=== PATIENT | male | born 1975 | race Caucasian/White ===

== ENCOUNTER 2024-11-10 09:30 | Outpatient (OUT) | payer OTHER, SELFPAY ==
--- OUTSIDE RECORDS SUMMARY | 2021-02-15 09:45 | XMS_ITS | Continuity of Care Document ---
Author Organization [facility] Address [address] [place] [address] Phone Care Team Providers Care Fabrication Welder Name Role Phone Asad Alfaro Unavailable Unavailable Procedures Procedure Date IMMUNIZATION ADMIN FLU VAC NO PRSV 4 AMOR 3 YRS+ Moderna COVID Vaccine Admin Dose 2 Moderna COVID-19 Vaccine Moderna COVID Vaccine Admin Dose 1 Moderna COVID-19 Vaccine Advance Directives Directive Yes / No Effective Date File Name No Information Encounters Encounter Description Practice Location Reason(s) For Visit Diagnoses Date Provider Providers Copied on Encounter [facility], [address] [place] [address], [id number], tel:[phone] [facility] No Information Jimy Owen. [address], [place], [id number], [place]. tel:[phone] [facility], [address], [place], [id number], [place] tel:[phone] [facility] No Information Jimy Owen. [address], [place], [id number], [place]. tel:[phone] [facility], [address] [place] [address], [id number], tel:[phone] [facility] No Information Jimy Owen. [address], [place], [id number], [place]. tel:[phone] Family History Family Member Type Diagnosis Age At Onset No Information Immunizations Vaccine Date Status Comments Flulaval/ Fluarix administered Source: Ne w Immunization Record Bradley COVID administered Source: New Im munization Record Bradley COVID administered Source: New Im munization Record Payers Payer name Insurance type Covered constitution party ID Authoriza tion(s) [facility] [place] [id number] [facility] [place] [id number] [facility] [place] [id number] [facility] [place] CI [id number] Social History Type Description Quantity Date Captured Comments Alcohol Use Details Unknown Caffeine Use Details Unknown Tobacco Use Status No Information Smoking Status No Information Sex Male Sexual Orientation Straight or heterosexual Gender Identity Male Chief Complaint And Reason For Visit No Information Reason For Referral Reason For Referral No Information History Of Present Illness Encounter Date Complaint History Of Prese nt Illness No Information Functional Status Date Functional Assessmen t No Information Instructions Date Instruction Additional Infor mation No Information Assessments Type Assessment Date No Information Patient Care Teams Name Effective Dates (start - stop) Status Members No Information
--- NOTE | 2024-11-10 | XR_ITS ---
[address] [address] Patient Name: ABHIJIT GOLDEN MRN: [id number] date: 1975 Sex: M Assigned Patient Location: [facility] Current Patient Location: [facility] Accession/Order Number: [id number] Exam Date: 11/10/2024 11:53 Report Date: 11/10/2024 11:55 At the request of: JACQUELINE CROUCH MD Procedure: XR knee LT 4V 4 views left knee plain film standing position COMPARISON: None HISTORY: Left knee pain ACUTE FINDINGS: No acute findings DEGENERATIVE CHANGE: Mild degenerative changes. Marginal spurring. Mild lateral joint space narrowing SOFT TISSUE FINDINGS: Unremarkable JOINT EFFUSION: Small POSTOP CHANGES: None BONE MINERALIZATION: Adequate XR/XR knee LT 4V IMPRESSION: Mild degenerative changes Impression dictated by: Dax Laura M.D. 11/10/2024 11:55 AM Dictation Location: [place] [address] Electronically authenticated by: [id number] Y Date: 11/10/2024 11:55
--- NOTE | 2024-11-10 | XR_ITS ---
[address] [address] Patient Name: ABHIJIT GOLDEN MRN: [id number] date: 1975 Sex: M Assigned Patient Location: [facility] Current Patient Location: [facility] Accession/Order Number: [id number] Exam Date: 11/10/2024 11:55 Report Date: 11/10/2024 11:57 At the request of: JACQUELINE CROUCH MD Procedure: XR pelvis 1-2V Single view of the pelvis plain film HISTORY: Chronic left knee pain. No injury COMPARISON: None ACUTE FINDINGS: None BONY ALIGNMENT: Adequate SOFT TISSUES: Benign calcifications inferior to the left inferior pubic ramus DEGENERATIVE CHANGE:Adequate left hip. Left greater trochanter mild spurring. Moderate right hip degeneration no articular collapse. No AVN INTRAPELVIC STRUCTURES: Unremarkable POSTSURGICAL CHANGES:None XR/XR pelvis 1-2V IMPRESSION:Mild left greater trochanter spurring. Adequate left hip. Impression dictated by: Dax Laura M.D. 11/10/2024 11:57 AM Dictation Location[facility] Electronically authenticated by: [id number] Y Date: 11/10/2024 11:57
--- OUTSIDE RECORDS SUMMARY | 2024-11-10 09:33 | XMS_ITS | Encounter Summary ---
Author Organization [facility] Address [address] [place] [address] Care Team Providers Care High School Physical Education Teacher Name Role Phone Gabino Mcrae DO Primary Care Provider +1- [phone] Encounter Details Date Type Department Care Team (Late st Contact Info) Description 01/06/2024 [facility] [address] [place] [address] Gabino Mcrae, DO [address] [place] [address] Social History Tobacco Use Types Packs/Day Years Used Date Smoking Tobacco: Never Smokeless Tobacco: Never Alcohol Use Standard Drinks/Week Comments Yes 6 (1 standard drink = 0.6 oz pur e alcohol) B1300 Health Literacy Answer Date Recor ded How often do you need to hav e someone help you when you read instructions, pamphlets, or other written material from your doctor or pharmacy? Patient declines to respond 11/12/2023 Social Connection and Isolat ion Panel [NHANES] Answer Date Recorded In a typical week, how many times do you talk on the phone with family, friends, or neighbors? More than three times a week 11/12/2023 How often do you get togethe r with friends or relatives? Twice a week 11/12/2023 How often do you attend chur or zoroastrianism services? 1 to 4 times per year 11/12/2023 Do you belong to any clubs o r organizations such as scientology groups, unions, fraternal or athletic groups, or school groups? Yes 11/12/2023 How often do you attend meet ings of the clubs or organizations you belong to? Patient declined 11/12/2023 Are you , , di vorced, , never , or living with a partner? 11/12/2023 AUDIT-C Answer Date Recorded Q1: How often do you have a drink containing alc ohol? Patient declined 11/12/2023 Q2: How many drinks containi ng alcohol do you have on a typical day when you are drinking? Patient declined 11/12/2023 Q3: How often do you have si x or more drinks on one occasion? Patient declined 11/12/2023 Overall Financial Resource Strain (CARDIA) Answe r Date Recorded How hard is it for you to pa y for the very basics like food, housing, medical care, and heating? Not hard at all 11/12/2023 PHQ-2 Answer Date Recorded Patient Health Questionnaire-2 Score 0 11/12/2023 [facility] of Occupat ional [facility] - Occupational Stress Questionnaire Answer Date Recorded Do you feel stress - tense, restless, nervous, or anxious, or unable to sleep at night because your mind is troubled all the time - these days? Not at all 11/12/2023 Exercise Vital Sign Answer Date Recorde d On average, how many days pe r week do you engage in moderate to strenuous exercise (like a brisk walk)? 3 days 11/12/2023 On average, how many minutes do you engage in exercise at this level? 30 min 11/12/2023 Hunger Vital Sign Answer Date Recorded Within the past 12 months, y ou worried that your food would run out before you got the money to buy more. Never true 11/12/19 Within the past 12 months, t he food you bought just didn't last and you didn't have money to get more. Never true 11/12/2023 PRAPARE - Transportation Answer Date Re corded In the past 12 months, has l ack of transportation kept you from medical appointments or from getting medications? No 10/24 In the past 12 months, has l ack of transportation kept you from meetings, work, or from getting things needed for daily living? No 11/12/2023 Housing Stability Vital Sign Answer Eliezer e Recorded In the last 12 months, was t here a time when you were not able to pay the mortgage or rent on time? Patient declined 11/12/19 24 Number of Times Moved in the Last Year Not on fi le 11/12/2023 At any time in the past 12 m [facility], were you homeless or living in a care home (including now)? Patient declined 11/12/2023 Sex and Gender Information Value Date Recorded Sex Assigned at Male 08/20/2023 8:43 AM EDT Legal Sex Male 7:03 PM EDT Gender Identity Male 08/20/2023 8:43 AM EDT Sexual Orientation Straight 08/20/2023 8: 43 AM EDT documented as of this encounter Plan of Treatment Not on file documented as of this encounter Visit Diagnoses Not on filedocumented in this encounter Care Teams High School Physical Education Teacher Relationship Specialty Start Date End Date Gabino Mcrae DO [address] [facility] [address] [place] [address] PCP - General Family Medicine 07/31/22 documented as of this encounter
--- OUTSIDE RECORDS SUMMARY | 2024-11-10 09:33 | XMS_ITS | Encounter Summary ---
Author Organization [facility] Address [address] [place] [address] Care Team Providers Care Cigar Wrapper Tender Automatic Name Role Phone Gabino Mcrae DO Primary Care Provider +1- [phone] Encounter Details Date Type Department Care Team (Late st Contact Info) Description 09/21/2024 [facility] [address] [place] [address] Gabino Mcrae, DO [address] [place] [address] Social History Tobacco Use Types Packs/Day Years [...] How often do you attend chur or sikhism services? 1 to 4 times per year 11/12/2023 Do you belong to any clubs o r organizations such as moravian groups, unions, fraternal or athletic groups, or [...] Date Recorded Patient Health Questionnaire-2 Score 0 04/28/2024 [facility] of Occupat ional [facility] - Occupational Stress Questionnaire Answer [...] any time in the past 12 m [facility], were you homeless or living in a nursing home (including now)? Patient declined 11/12/2023 Sex [...] on filedocumented in this encounter Care Teams Cigar Wrapper Tender Automatic Relationship Specialty Start Date End Date Gabino Mcrae DO [address] [facility] [address] [place] [address] PCP - General Family Medicine 07/31/22 documented as of this encounter
--- OUTSIDE RECORDS SUMMARY | 2024-11-10 09:33 | XMS_ITS | Encounter Summary ---
Author Organization [facility] Address [address] [place] [address] Care Team Providers Care Mechanical Engineer Name Role Phone Gabino Mcrae DO Primary Care Provider +1- [phone] Encounter Details Date Type Department Care Team (Late st Contact Info) Description 07/21/2024 [facility] [address] [place] [address] Gabino Mcrae, DO [address] [place] [address] Social History Tobacco Use Types [...] How often do you attend chur or latter-day services? 1 to 4 times per year 11/12/2023 Do you belong to any clubs o r organizations such as temple groups, unions, fraternal or athletic groups, or [...] Recorded Patient Health Questionnaire-2 Score 0 04/28/2024 [facility] of Occupat ional [facility] - Occupational Stress Questionnaire Answer [...] any time in the past 12 m [facility], were you homeless or living in a snf (including now)? Patient declined 11/12/2023 Sex and [...] on filedocumented in this encounter Care Teams Mechanical Engineer Relationship Specialty Start Date End Date Gabino Mcrae DO [address] [facility] [address] [place] [address] PCP - General Family Medicine 07/31/22 documented as of this encounter
--- OUTSIDE RECORDS SUMMARY | 2024-11-10 09:33 | XMS_ITS | Clinical Summary ---
Author Organization [facility] Address [address] [place] [address] Care Team Providers Care Glazing Machine Operator Name Role Phone Gabino Mcrae Primary Care Provid er Allergies No known active allergies Medications meloxicam (MOBIC) 15 mg tablet Take 15 mg by mouth once daily. Active celecoxib (CELEBREX) 200 mg capsule Take one capsule by mouth twice daily after surgery for 30 days. 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 Last address used for calculation Dipesh Vargas 04/08/2022 Sex and Gender Information Value Date Recorded Sex Assigned at Not on file Legal Sex Male 7:29 AM EST Gender Identity Not on file Sexual Orientation Not on file Last Filed Vital Signs Vital Sign Reading Time Taken Comments Blood Pressure 136/73 08/15/2004 9:45 AM EDT Pulse 67 08/15/2004 9:45 AM EDT Temperature 36.3 C (97.3 F) 08/15/2004 9:45 AM EDT Respiratory Rate 20 07/19/2004 1:54 PM EDT Oxygen Saturation - - Inhaled Oxygen Concentration - - Weight 129.7 kg (286 lb) 05/29/2021 9:30 AM EST Height 185.4 cm (6' 1 ) 05/29/2021 9:30 AM EST Body Mass Index 37.73 05/29/2021 9:30 AM EST Plan of Treatment Health Maintenance Due Date Last Done Comments Anxiety Screening 09/24/1993 Depression Screening 09/24/1993 HIV Screening 09/24/1993 Hepatitis C Screening 09/24/1993 Hepatitis B Vaccine (1 of 3 - 19+ 3-dose series) 09/24/1994 Lipid Screening 09/24/2010 CT Colonography 09/24/2020 Cologuard (FIT-DNA) 09/24/2020 Colonoscopy 09/24/2020 Colorectal Cancer Screening 09/24/2020 Diabetes Screening 09/24/2020 08/15/2004, 07/19/2004 Fecal Occult Blood 09/24/2020 Sigmoidoscopy 09/24/2020 Influenza Vaccine (#1) 2024 , 11/16/2019, 02/01/2019, Additional history exists DTaP,Tdap,Td Vaccine (2 - Td or Tdap) 05/01/2029 05/01/2019 Procedures Procedure Name Priority Date/Time Associated Diagnosis Comments COMPREHENSIVE METABOLIC PANEL Routine 08/15/2004 11:29 AM EDT Bone Marrow Donor from Last 3 Months or Most Recently Relevant to Health Maintenance Results * COMP METABOLIC PANEL (08/15/2004 11:29 AM EDT) Protein, Total 7.0 6.0 - 8.4 g/dL [facility] Albumin 4.4 3.5 - 5.0 g/dL [facility] Calcium 10.0 8.5 - 10.5 mg/dL [facility] Bilirubin, Total 0.7 0.0 - 1.5 mg/dL [facility] Alkaline Phosphatase 71 40 - 150 U/L [facility] AST 24 7 - 40 U/L [facility] Glucose 95 65 - 100 mg/dL [facility] BUN 13 10 - 25 mg/dL [facility] Creatinine 1.0 0.7 - 1.4 mg/dL [facility] Sodium 141 135 - 146 mmol/L [facility] Potassium 3.9 3.5 - 5.0 mmol/L [facility] Chloride 103 98 - 110 mmol/L [facility] CO2 25 23 - 32 mmol/L [facility] Anion Gap 13 0 - 15 mmol/L [facility] ALT 30 5 - 50 U/L [facility] eGFR 95 [facility] MELD 5 [facility] Blood specimen (specimen) BLOOD SPECIMEN / Unknown 08/15/2004 11:29 AM EDT us Dami Little MD LABORATORY Final Result [facility] [address] [place] [address] from Last 3 Months or Most Recently Relevant to Health Maintenance Insurance O S Care Teams Glazing Machine Operator Relationship Specialty Start Date End Date Gabino Mcrae DO [address] [place] [address] PCP - General Family Medicine 11/27/17
--- OUTSIDE RECORDS SUMMARY | 2024-11-10 09:33 | XMS_ITS | Clinical Summary ---
Author Organization [facility] Address [address] [place] [address] Care Team Providers Care Rasper Machine Operator Name Role Phone Gabino Mcrae DO Primary Care Provider +1- [phone] Allergies No known active allergies Medications celecoxib (CeleBREX) 100 MG capsule bid 10/11/2023 Active Active Problems Problem Noted Date Diagnosed Date Right hip pain 11/12/2023 Primary osteoarthritis of right hip 11/12/2023 Gastroesophageal reflux disease 08/20/2023 Hip arthritis 08/20/2023 Obesity, Class I, BMI 30-34.9 08/20/2023 Severe obesity (BMI 35.0-39.9) with comorbidity 08/20/2023 Osteoarthritis of one hip, right 05/29/2021 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 Encounters Date Type Department Care Team Description 09/21/2024 Abstract [facility] [address] [place] [address] Gabino Mcrae, 09/14/2024 Abstract [facility] [address] [place] [address] Gabino Mcrae, DO 09/04/2024 Abstract [facility] [address] [place] [address] Gabino Mcrae, DO from Last 3 Months Family History Medical History Relation Name Comments Hypertension Father Relation Name Status Comments Brother Alive 1 Daughter Alive 1 Father Alive Mother Alive Sister Alive 1 Son Alive 1 Social History Tobacco Use Types Packs/Day Years Used Date Smoking Tobacco: Never Smokeless Tobacco: Never Tobacco Cessation:Counseling Given: No Alcohol Use Standard Drinks/Week Comments Yes 6 [...] 11/12/2023 How often do you attend chur ch or jainism services? 1 to 4 times per year 11/12/2023 Do you belong to any clubs o r organizations such as congregational groups, unions, fraternal or athletic groups, or [...] Recorded Patient Health Questionnaire-2 Score 0 04/28/2024 [facility] of Occupat ional Health - Occupational Stress Questionnaire Answer Date Recorded [...] money to buy more. Never true 11/12/19 24 Within the past 12 months, t he [...] or rent on time? Patient declined 11/12/19 Number of Times Moved in the Last Year Not on fi le 11/12/2023 At any time in the past 12 m [facility], were you homeless or living in a chcf (including now)? Patient declined 11/12/2023 Sex and Gender Information Value Date Recorded Sex Assigned at Male 08/20/2023 8:43 AM EDT Legal Sex Male 7:03 PM EDT Gender Identity Male 08/20/2023 8:43 AM EDT Sexual Orientation Straight 08/20/2023 8: 43 AM EDT Last Filed Vital Signs Vital Sign Reading Time Taken Comments Blood Pressure 120/82 04/28/2024 1:29 PM EST Pulse 58 04/28/2024 1:29 PM EST Temperature 36.8 C (98.3 F) 04/28/2024 1:29 PM EST Respiratory Rate - - Oxygen Saturation 99% 04/28/2024 1:29 PM EST Inhaled Oxygen Concentration - - Weight 108 kg (239 lb) 04/28/2024 1:29 PM EST Height 185.4 cm (6' 1 ) 04/28/2024 1:29 PM EST Body Mass Index 31.53 04/28/2024 1:29 PM EST Plan of Treatment Health Maintenance Due Date Last Done Comments CT Colonography 1975 FIT-DNA 1975 FIT 1975 FOBT 1975 Sigmoidoscopy 1975 Influenza Vaccine (#1) 2024 4, 02/15/2021, 11/16/2019, Additional history exists Colonoscopy 05/01/2031 05/01/2021 Colorectal Cancer Screening 05/01/2031 Procedures Procedure Name Priority Date/Time Associated Diagnosis Comments COLONOSCOPY Routine 05/01/2021 12:00 PM EST from Last 3 Months or Most Recently Relevant to Health Maintenance Results * Colonoscopy (05/01/2021 12:00 PM EST) Anatomical Region Laterality Modality Endoscopy 05/01/2021 12:0 0 PM EST Narrative 05/01/2021 12:00 PM EST PERFORMED AT [facility] LOCATION[facility][id number] [facility] Procedure Note CONVERSION, GENERIC - 08/08/2022 PERFORMED AT [facility] LOCATION:[id number] [facility] Gabino Mcrae DO ENDOSCOPY PROCEDURE ORDERA BLES Final Result from Last 3 Months or Most Recently Relevant to Health Maintenance Insurance [employer] Care Teams Rasper Machine Operator Relationship Specialty Start Date End Date Gabino Mcrae DO [address] [place] [id number] PCP - General Family Medicine 07/31/22
--- OUTSIDE RECORDS SUMMARY | 2024-11-10 09:33 | XMS_ITS | Encounter Summary ---
Author Organization [facility] Address [address] [place] [address] Care Team Providers Care Tractor Mechanic Name Role Phone Gabino Mcrae DO Primary Care Provider +1- [phone] Encounter Details Date Type Department Care Team (Late st Contact Info) Description 09/14/2024 [facility] [address] [place] [address] Gabino Mcrae, DO [address] [place] [address] Social History Tobacco Use Types [...] How often do you attend chur or pentecostal services? 1 to 4 times per year 11/12/2023 Do you belong to any clubs o r organizations such as hindu groups, unions, fraternal or athletic groups, or [...] Recorded Patient Health Questionnaire-2 Score 0 04/28/2024 [facility] of Occupat ional [facility] - Occupational Stress Questionnaire Answer Date Recorded [...] any time in the past 12 m [facility], were you homeless or living in a alf (including now)? Patient declined 11/12/2023 Sex and [...] on filedocumented in this encounter Care Teams Tractor Mechanic Relationship Specialty Start Date End Date Gabino Mcrae DO [address] [facility] [address] [place] [address] PCP - General Family Medicine 07/31/22 documented as of this encounter
--- OUTSIDE RECORDS SUMMARY | 2024-11-10 09:33 | XMS_ITS | Encounter Summary ---
Author Organization [facility] Address [address] [place], [place] [id number] Care Team Providers Care Group Fitness Department Head Name Role Phone Pcp, No Primary Care Provider Unavailabl e Pcp, No Primary Care Provider Unavailabl e Gabino Mcrae DO Primary Care Provid er Source Comments In the event this information is protected by the Federal Confidentiality of Alcohol and Drug AbusePatient Records regulations: The Federal rules restrict any use of the information to criminally investigate or prosecute any alcohol or drug abuse patient.[facility] Encounter Details Date Type Department Care Team (Latest Contact Info) Description 08/13/2004 Prob Sum Review Provider, [facility] Social History Tobacco Use Types Packs/Day Years Used Date Smoking Tobacco: Never Assessed Sex and Gender Information Value Date Recorded Sex Assigned at Not on file Legal Sex Male 7:29 AM EST Gender Identity Not on file Sexual Orientation Not on file documented as of this encounter Plan of Treatment Not on file documented as of this encounter Visit Diagnoses Not on filedocumented in this encounter Care Teams Group Fitness Department Head Relationship Specialty Start Date End Date Pcp, No PCP - General 07/31/05 02/21/06 Pcp, No PCP - General 07/10/04 03/24/05 Gabino Mcrae DO [address] [place] [address] PCP - General Family Medicine 11/27/17 documented as of this encounter
--- OUTSIDE RECORDS SUMMARY | 2024-11-10 09:33 | XMS_ITS | Encounter Summary ---
Author Organization [facility] Address [address] [place] [address] Care Team Providers Care Television Maintenance Man Name Role Phone Gabino Mcrae DO Primary Care Provider [phone]- [phone] Encounter Details Date Type Department Care Team (Late st Contact Info) Description 09/04/2024 [facility] [address] [place] [address] Gabino Mcrae, DO [address] [place] [address] Social History Tobacco Use Types [...] How often do you attend chur or christianity services? 1 to 4 times per year 11/12/2023 Do you belong to any clubs o r organizations such as voodoo groups, unions, fraternal or athletic groups, or [...] Recorded Patient Health Questionnaire-2 Score 0 04/28/2024 [facility] - Occupational Stress Questionnaire Answer Date [...] any time in the past 12 m [facility], were you homeless or living in a group home (including now)? Patient declined 11/12/2023 Sex [...] on filedocumented in this encounter Care Teams Television Maintenance Man Relationship Specialty Start Date End Date Gabino Mcrae DO [address] [facility] [address] [place] [address] PCP - General Family Medicine 07/31/22 documented as of this encounter
== END 2024-11-10 09:31 | disposition home or self-care (01) ==
LOC: RAD 09:30
PROVIDERS: PCP Family Medicine; Visit Provider Orthopaedic Surgery
DX: Z98.890 Other specified postprocedural states (principal); S83.282A Other tear of lateral meniscus, current injury, left knee, initial encounter; M17.12 Unilateral primary osteoarthritis, left knee
CPT/HCPCS: 72170; 73564